=== PATIENT | male | born 1930 | race Caucasian/White ===

== ENCOUNTER → 2016-09-01 | Outpatient (CLI) | payer OTHER ==
[~2016-09-01] MED LIST: ADVAIR 250-501 EACH IH; ALBUTEROL2.5 MG/0.5 INH; ALEVE220 MG PO; ALPHAGAN P10 ML OPHTHALMIC; ALTACE10 MG PO; AMBIEN 5 MG TABL5 M1 PO; CENTRUM SILVER1 EAC4 PO; CERTAGEN PO; COSOPT EYE DROPS5 ML; COUMADIN; COUMADIN 4 MG TA4 M1 PO; COUMADIN 5 MG TA5 M1 PO; DOXYCYCLINE 10100 M1 PO; DUONEB 2.5-0.5 M3 ML INH; FEVERALL650 MG RECTAL; FLOMAX0.4 MG PO; FLOXIN OTI0.3 %/5 M1 OP; HYDROCODON-ACE1 EA11 PO; HYDROCODONE-AP1 EAC6 PO; ICAPS TABLET1 EACH PO; INCRUSE ELLI62.5 MCG IH; INVANZ 1GM/NS 101 GM IV; KEFLEX500 MG PO; LEXAPRO 10 MG T10 MG PO; LOTEMAX5 ML OPHTHALMIC; LUMIGAN2.5 M1; MUCINEX TA600 MG/TA2 PO; NORCO 5-325 TA1 EACH PO; PRILOSEC 20 MG20 MG PO; SYMBICORT160 MCG/4. INH; SYSTANE 0.3-0.1 EACH OP; SYSTANE ULTRA 010 ML OPHTHALMIC; TEARS NATURALE1 EACH OPHTHALMIC; TIMOLOL MA0.5 %/5 M2 OPHTHALMIC; WARFARIN SODIUM6 MG PO
--- NOTE | ~2016-09-01 | 2DMMODE ---
[facility] [employer] [place] [address] 2 D/M-MODE ECHOCARDIOGRAM Name: MICKEY COVARRUBIAS Room #: REG [facility]#: [id number] Admission: 09/01/16 Attend Phys: Hari Rosas, Discharge: Date of : 34 Date of Service: 09/01/16 1016 Report #: [id number] THIS REPORT FOR: //name// APPROVED REPORT Study performed: 09/01/2016 08:11:40 EXAM: Comprehensive 2D, Doppler, and color-flow Echocardiogram Patient Location: Out-Patient Blood Pressure: 145/83 mmHg HR: 80 bpm Rhythm: NSR/Frequent PVC'S Other Information Study Quality: Good Indications Dyspnea Hx: COPD, HTN 2D Dimensions RVDd: 38.82 mm LVEF(%): 40.68 (>50%) IVSd: 10.65 (7-11mm) LVOT Diam: 22.03 (18-24mm) LVDd: 52.25 mm PWd: 9.91 (7-11mm) Ascending Aorta: 32.21 mm LVDs: 41.79 (25-40mm) Aortic Root: 32.50 mm Bowles's LVEF: 40.68 % Volumes Left Atrial Volume (Systole) Single Plane 4CH: 59.91 mL Single Plane 2CH: 55.02 mL LA ESV Index: 30.00 mL/m2 Aortic Valve AoV Peak Gómez.: 1.76 m/s AO Peak Gr.: 12.46 mmHg LV Max P.75 mmHg LV Max: 0.97 m/s Mitral Valve MV PHT: 48.67 ms MV E Max Gómez.: 1.12 m/s E/A Ratio: 0.8 [facility] [employer] [address] [place] [address] 2 D/M-MODE ECHOCARDIOGRAM Name: MICKEY COVARRUBIAS Room #: REG [facility]#: [id number] Admission: 09/01/16 Attend Phys: Hari Rosas, Discharge: Date of : 34 Date of Service: 09/01/16 1016 Report #: [id number] MV A Gómez.: 1.41 m/s MV Decel. Time: 167.84 ms Tricuspid Valve TR Peak Gómez.: 2.43 m/s RAP Estimate: 5.00 mmHg TR Peak Gr.: 23.61 mmHg RVSP: 29.00 mmHg Left Ventricle The left ventricle is normal size. Regional wall motion abnormalities are noted. There is normal left ventricular wall thickness. Left ventricular systolic function is mildly decreased. LVEF is 45-50%. Grade I - abnormal relaxation pattern. Right Ventricle The right ventricle is normal size. The right ventricular systolic function is normal. Atria The left atrium size is normal. The right atrium size is normal. Aortic Valve The Aortic valve is moderately sclerotic. No aortic regurgitation is present. There is no aortic valvular stenosis. Mitral Valve Mitral valve leaflets are moderately thickened. Mild mitral annular calcification. Mild to moderate mitral regurgitation. Tricuspid Valve The tricuspid valve is normal in structure. There is trace to mild tricuspid regurgitation. The right atrial pressure is estimated at 5 mmHg.Estimated PAP of 29mmHg. Pulmonic Valve The pulmonary valve is normal in structure. Trace pulmonic regurgitation. Great Vessels The aortic root is normal in size. The ascending aorta is normal in size. IVC is normal in size and collapses >50% with inspiration. Pericardium There is no pericardial effusion. <Conclusion> [facility] [address] [place] [address] 2 D/M-MODE ECHOCARDIOGRAM Name: MICKEY COVARRUBIAS Room #: REG [facility]#: [id number] Admission: 09/01/16 Attend Phys: Hari Rosas, Discharge: Date of : 34 Date of Service: 09/01/16 1016 Report #: [id number] The left ventricle is normal size. Regional wall motion abnormalities are noted. LVEF is 45-50%. The Aortic valve is moderately sclerotic. Mitral valve leaflets are moderately thickened. Mild mitral annular calcification. Mild to moderate mitral regurgitation. There is trace to mild tricuspid regurgitation. The right atrial pressure is estimated at 5 mmHg.Estimated PAP of 29mmHg. Trace pulmonic regurgitation. <ELECTRONICALLY SIGNED> By: Ck Reina MD 09/01/16 1016 1016 [facility] Ck Reina MD /INF
== END ==
LOC: CV 06:55
DX: R06.00 Dyspnea, unspecified (principal); I10 Essential (primary) hypertension; J44.9 Chronic obstructive pulmonary disease, unspecified

== ENCOUNTER → 2017-09-20 | Outpatient (CLI) | payer OTHER | LOC: RAD 11:13 | DX: J44.9 Chronic obstructive pulmonary disease, unspecified (principal); J96.11 Chronic respiratory failure with hypoxia; Z88.1 Allergy status to other antibiotic agents ==